=== PATIENT | male | born 1960 | race African-American/Black ===

== ENCOUNTER 2022-03-18 12:42 | Emergency (ER) | payer MEDICARE, MEDICAID ==
[~2022-03-18] VITALS: Ht 167.6 cm; Wt 52.0 kg
[~2022-03-18 12:42] MED LIST: LITH150C PO
[2022-03-18 12:52] VITALS: BP 100/50
[2022-03-18 15:35] LABS: BASOPHILS % 1.3 % (0.0-2.0); EOSINOPHILS % 0.4 % (0.0-5.0); HEMATOCRIT. 36.3 % (42.0-52.0); HEMOGLOBIN. 12.3 g/dL (14.0-18.0); LYMPHOCYTES % 61.6 % (20.0-50.0); MEAN CORPUSCULAR HEMOGLOBIN 31.3 pg (28.0-32.0); MEAN CORPUSCULAR VOLUME 92.7 fL (80.0-94.0); MONOCYTES % 11.3 % (2.0-8.0); NEUTROPHILS % 25.4 % (40.0-76.0); PLATELET 135 x1000/uL (130-400); RED BLOOD CELL COUNT 3.92 mill/uL (4.7-6.1); RED CELL DISTRIBUTION WIDTH 14.5 % (11.6-14.6)
[2022-03-18 15:43] LABS: CHLORIDE 111 mEq/L (98-107)
[2022-03-18 15:52] LABS: ETHANOL BLOOD < 10 mg/dL; VALPROIC ACID <3.0 ug/mL ug/mL (50-100)
[2022-03-18 16:01] LABS: CARBAMAZEPINE < 0.5 ug/mL (4-12); PHENOBARBITAL < 2.1 ug/mL (15.0-40.0)
== END 2022-03-18 16:22 | disposition left against medical advice (07) ==
LOC: ER 13:51
DX: F91.8 Other conduct disorders (principal); F31.9 Bipolar disorder, unspecified; G40.909 Epilepsy, unspecified, not intractable, without status epilepticus
CPT/HCPCS: 36415; 80053; 80156; 80165; 80178; 80184; 80185; 80307; 80320; 80329; 85025; 99284; G0480

== ENCOUNTER 2022-03-18 18:10 | Emergency (ER) | payer MEDICARE, MEDICAID ==
[~2022-03-18] VITALS: Ht 157.5 cm; Wt 60.0 kg
[2022-03-18] MEDS ORDERED: SODIUM CHLORIDE 0.9% 1000ML BAG (SEPSIS BOLUS) IV ONE (22:15)
[2022-03-19 03:25] LABS: CHLORIDE 116 mEq/L (98-107)
[2022-03-19 03:33] LABS: ETHANOL BLOOD < 10 mg/dL
[2022-03-19 03:47] LABS: EOSINOPHILS % 0.7 % (0.0-5.0); HEMATOCRIT. 38.6 % (42.0-52.0); LYMPHOCYTES % 55.5 % (20.0-50.0); MEAN CORPUSCULAR HEMOGLOBIN 31.4 pg (28.0-32.0); MEAN CORPUSCULAR VOLUME 92.9 fL (80.0-94.0); MEAN PLATELET VOLUME 8.9 fl (7.4-10.4); MONOCYTES % 11.2 % (2.0-8.0); NEUTROPHILS % 31.6 % (40.0-76.0); PLATELET 120 x1000/uL (130-400); RED BLOOD CELL COUNT 4.15 mill/uL (4.7-6.1)
[2022-03-19] MEDS ORDERED: LACTATED RINGERS 1,000 ML IV SCH (04:15)
[2022-03-19 05:43] LABS: *AMPHETAMINES SCREEN URINE NEGATIVE (NEGATIVE); *BARBITURATES SCREEN URINE NEGATIVE (NEGATIVE); *BENZODIAZEPINES SCREEN URINE NEGATIVE (NEGATIVE); *COCAINE SCREEN URINE NEGATIVE (NEGATIVE); CANNABINOID URINE SCREEN PRESUMTIVE POSITIVE (NEGATIVE); METHADONE URINE SCREEN NEGATIVE (NEGATIVE); OPIATES URINE SCREEN NEGATIVE (NEGATIVE); PHENCYCLIDINE URINE SCREEN NEGATIVE (NEGATIVE)
[2022-03-19 09:25] LABS: CLARITY URINE CLEAR (CLEAR); COLOR URINE YELLOW (YELLOW); KETONES URINE TRACE (NEGATIVE); LEUKOCYTE ESTERASE URINE NEGATIVE (NEGATIVE); NITRITE URINE NEGATIVE (NEGATIVE); OCCULT BLOOD URINE NEGATIVE (NEGATIVE); PH URINE 5.5 (4.5-8.0); PROTEIN URINE NEGATIVE (NEGATIVE); SPECIFIC GRAVITY URINE 1.016 (1.005-1.030)
[2022-03-19] MEDS: RISPERIDONE 0.5MG TABLET PO SCH ×2 (14:57→21:55)
[2022-03-20] MEDS ORDERED: ZIPRASIDONE MESYLATE 20MG/VIAL IM ONE (02:30)
[2022-03-20] MEDS: RISPERIDONE 0.5MG TABLET PO SCH (08:55)
[2022-03-20] MEDS ORDERED: RISPERIDONE 1MG TABLET PO SCH (21:00)
[2022-03-21 05:11] VITALS: BP 119/75
== END 2022-03-21 11:00 | disposition home or self-care (01) ==
LOC: ER 18:10
DX: F31.9 Bipolar disorder, unspecified (principal); U07.1 COVID-19; I95.9 Hypotension, unspecified; D69.6 Thrombocytopenia, unspecified; F91.8 Other conduct disorders; G40.909 Epilepsy, unspecified, not intractable, without status epilepticus; Z75.1 Person awaiting admission to adequate facility elsewhere
CPT/HCPCS: 36415; 70450; 71045; 80053; 80156; 80165; 80178; 80184; 80185; 80305; 80307; 80320; 80329; 81003; 83605; 83880; 84484; 85025; 86850; 96360; 96361; 99285; C9803; J3486; J7030; U0003; U0005; 99284; G0480

== ENCOUNTER 2022-03-29 14:16 | Emergency (ER) | payer MEDICARE, MEDICAID ==
[~2022-03-29] VITALS: Ht 170.2 cm; Wt 69.0 kg
[2022-03-29 14:48] VITALS: BP 114/68
[2022-03-29] MEDS ORDERED: SODIUM CHLORIDE 0.9% 1,000 ML IV ONE (16:45)
== END 2022-03-29 17:50 | disposition left against medical advice (07) ==
LOC: ER 14:16
DX: F23 Brief psychotic disorder (principal); F31.9 Bipolar disorder, unspecified; G40.909 Epilepsy, unspecified, not intractable, without status epilepticus; Z59.00 Homelessness unspecified
CPT/HCPCS: 99281; J7030

== ENCOUNTER 2022-04-04 15:17 | Emergency (ER) | payer MEDICARE, MEDICAID ==
[~2022-04-04] VITALS: Ht 188 cm; Wt 76.0 kg
[2022-04-04 15:39] VITALS: BP 145/78
== END 2022-04-04 19:30 | disposition left against medical advice (07) ==
LOC: ER 15:17
DX: Z53.21 Procedure and treatment not carried out due to patient leaving prior to being seen by health care provider (principal)

== ENCOUNTER 2022-07-22 12:20 | Emergency (ER) | payer MEDICARE, MEDICAID ==
[~2022-07-22] VITALS: Ht 167.6 cm; Wt 75.0 kg
[2022-07-22 12:21] VITALS: BP 110/58
[2022-07-22] MEDS ORDERED: LITHIUM CARBONATE 150 MG CAPSULE PO STA (12:41)
== END 2022-07-22 13:24 | disposition home or self-care (01) ==
LOC: ER 12:39
DX: Z76.0 Encounter for issue of repeat prescription (principal); F31.9 Bipolar disorder, unspecified; G40.909 Epilepsy, unspecified, not intractable, without status epilepticus
CPT/HCPCS: 99283